=== PATIENT | female | born 1990 | race Two or more races ===

== ENCOUNTER 2021-08-01 04:45 | Emergency (ER) | payer OTHER ==
[~2021-08-01] VITALS: Ht 162.6 cm; Wt 52.2 kg
== END 2021-08-01 10:50 | disposition home or self-care (01) ==
LOC: ER 04:45
DX: K29.70 Gastritis, unspecified, without bleeding (principal)

== ENCOUNTER 2021-10-26 09:32 | Emergency (ER) | payer OTHER ==
[~2021-10-26] VITALS: Ht 132.1 cm; Wt 48.5 kg
== END 2021-10-26 18:37 | disposition home or self-care (01) ==
LOC: ER 09:32
DX: J06.9 Acute upper respiratory infection, unspecified (principal); Z20.828 Contact with and (suspected) exposure to other viral communicable diseases

== ENCOUNTER 2022-06-15 15:05 | Emergency (ER) | payer OTHER ==
[~2022-06-15] VITALS: Ht 154.9 cm; Wt 61.2 kg
== END 2022-06-15 18:25 | disposition home or self-care (01) ==
LOC: ER 15:05
DX: R53.81 Other malaise (principal); J06.9 Acute upper respiratory infection, unspecified

== ENCOUNTER 2022-06-21 21:28 | Emergency (ER) | payer OTHER ==
[~2022-06-21] VITALS: Ht 162.6 cm; Wt 54.4 kg
== END 2022-06-21 22:34 | disposition home or self-care (01) ==
LOC: ER 21:28
DX: R05.9 Cough, unspecified (principal)

== ENCOUNTER 2022-09-07 06:58 | Emergency (ER) | payer OTHER ==
[~2022-09-07] VITALS: Ht 162.6 cm; Wt 53.5 kg
[2022-09-07] MEDS ORDERED: DICLOFENAC SODI75 MG PO (09:48)
== END 2022-09-07 09:52 | disposition home or self-care (01) ==
LOC: ER 06:58
DX: R07.9 Chest pain, unspecified (principal)

== ENCOUNTER 2022-10-28 11:32 | Emergency (ER) | payer OTHER ==
[~2022-10-28] VITALS: Ht 162.6 cm; Wt 52.2 kg
[~2022-10-28 11:32] MED LIST: DICLOFENAC SODI75 MG PO
== END 2022-10-28 18:11 | disposition home or self-care (01) ==
LOC: ER 11:32
DX: M54.59 Other low back pain (principal)

== ENCOUNTER 2023-04-12 15:33 | Emergency (ER) | payer OTHER ==
[~2023-04-12] VITALS: Ht 162.6 cm; Wt 51.3 kg
== END 2023-04-12 17:40 | disposition home or self-care (01) ==
LOC: ER 15:34
DX: J30.89 Other allergic rhinitis (principal)

== ENCOUNTER 2023-05-31 18:51 | Emergency (ER) | payer OTHER ==
[~2023-05-31] VITALS: Ht 162.6 cm; Wt 49.9 kg
[2023-05-31 21:23] LABS: HEMATOCRIT 36.9 % (36.0-45.00); HEMOGLOBIN 12.7 g/dL (12.0-15.00); MEAN CELL VOLUME 88.1 fL (80.00-100.00); MEAN CORPUSCULAR HEMOGLOBIN 30.3 pg (27.00-32.0); MEAN CORPUSCULAR HGB CONC 34.4 g/dl (32.0-36.0); PLATELET COUNT 299 K/uL (150-450); RED BLOOD COUNT 4.19 M/uL (4.00-6.00); RED CELL DISTRIBUTION WIDTH 12.2 % (11.5-14.5)
== END 2023-05-31 22:00 | disposition home or self-care (01) ==
LOC: ER 18:52
DX: J06.9 Acute upper respiratory infection, unspecified (principal); Z20.822 Contact with and (suspected) exposure to COVID-19

== ENCOUNTER 2024-03-14 12:16 | Emergency (ER) | payer OTHER ==
[~2024-03-14] VITALS: Ht 152.4 cm; Wt 52.6 kg
[2024-03-14] MEDS ORDERED: ACETAMINOPHEN 500 MG GEL..CAP PO ONE (14:05)
[2024-03-14] MEDS ORDERED: BENTYL10 MG/1 ML IM (14:09)
[2024-03-14] MEDS ORDERED: PEPCID AC20 MG PO (14:09)
[2024-03-14] MEDS ORDERED: PROTONIX40 MG PO (14:10)
[2024-03-14] MEDS ORDERED: FAMOtidine 10 MG/ML (4ML VIAL) IV PUSH ONE (14:30)
[2024-03-14] MEDS ORDERED: ONDANSETRON HCL 2 MG/ML VIAL IM ONE (14:30)
[2024-03-14] MEDS ORDERED: BUTALB/ACETAMINOPHEN/CAFFEINE 1 TAB TABLET PO ONE ×2 (14:30→15:00)
[2024-03-14] MEDS ORDERED: ONDANSETRON HCL 2 MG/ML VIAL ONE (15:00)
[2024-03-14] MEDS ORDERED: FAMOTIDINE/PF 20 MG/2 ML VIAL ONE (15:00)
[2024-03-14 16:39] LABS: HEMATOCRIT 39.9 % (36.0-45.00); HEMOGLOBIN 13.4 g/dL (12.0-15.00); MEAN CELL VOLUME 88.6 fL (80.00-100.00); MEAN CORPUSCULAR HEMOGLOBIN 29.7 pg (27.00-32.0); MEAN CORPUSCULAR HGB CONC 33.6 g/dl (32.0-36.0); PLATELET COUNT 227 K/uL (150-450); RED CELL DISTRIBUTION WIDTH 12.3 % (11.5-14.5)
[2024-03-14 16:59] LABS: ALBUMIN 4.3 gm/dL (3.4-5.0); BILIRUBIN TOTAL 0.97 mg/dL (0.3-1.2); CALCIUM 9.2 mg/dL (8.5-10.1); CREATININE SERUM 0.83 mg/dL (0.55-1.02); GFR 79.17; POTASSIUM 3.96 mEq/L (3.5-5.1); TOTAL PROTEIN 8.3 gm/dL (6.4-8.2)
[2024-03-14] MEDS ORDERED: IPRATROPIUM/ALBUTEROL SULFATE 3 ML AMPUL.NEB IH SCH (17:45)
[2024-03-14] MEDS ORDERED: OSEL75CA PO (17:55)
[2024-03-14] MEDS ORDERED: ACETAMINOPHEN500 M1 PO (17:55)
[2024-03-14] MEDS ORDERED: GILTUSS COUGH-118 M1 PO (17:55)
[2024-03-14] MEDS ORDERED: BENZONATATE 200 MG CAPSULE PO ONE (18:00)
[2024-03-14] MEDS ORDERED: IPRATROPIUM/ALBUTEROL SULFATE 3 ML AMPUL.NEB IH ONE (18:00)
== END 2024-03-14 18:58 | disposition home or self-care (01) ==
LOC: ER 12:18
PROVIDERS: General Practice
DX: J10.1 Influenza due to other identified influenza virus with other respiratory manifestations (principal); Z20.822 Contact with and (suspected) exposure to COVID-19; Z88.0 Allergy status to penicillin; Z87.09 Personal history of other diseases of the respiratory system

== ENCOUNTER 2024-06-25 14:39 | Emergency (ER) | payer OTHER ==
[~2024-06-25] VITALS: Ht 162.6 cm; Wt 49.9 kg
[~2024-06-25 14:39] MED LIST changes: +ACETAMINOPHEN500 M1 PO; +BENTYL10 MG/1 ML IM; +GILTUSS COUGH-118 M1 PO; +OSEL75CA PO; +PEPCID AC20 MG PO; +PROTONIX40 MG PO
[2024-06-25] MEDS ORDERED: DEXAMETHASONE SODIUM PHOSPHATE 4 MG/ML VIAL IM ONE (16:45)
[2024-06-25] MEDS ORDERED: KETOROLAC TROMETHAMINE 30 MG VIAL IM ONE (16:45)
[2024-06-25] MEDS ORDERED: DEXAMETHASONE SODIUM PHOSPHATE 4 MG/ML VIAL ONE (16:51)
[2024-06-25] MEDS ORDERED: KETOROLAC TROMETHAMINE 30 MG VIAL ONE (16:51)
== END 2024-06-25 17:47 | disposition home or self-care (01) ==
LOC: ER 14:39
DX: M94.0 Chondrocostal junction syndrome [Tietze] (principal); S23.41XA Sprain of ribs, initial encounter; Z88.0 Allergy status to penicillin

== ENCOUNTER 2025-01-02 17:36 | Emergency (ER) | payer OTHER ==
[~2025-01-02] VITALS: Ht 162.6 cm; Wt 54.4 kg
[2025-01-02] MEDS ORDERED: NORFLEX100MG PO (18:15)
[2025-01-02] MEDS ORDERED: KETOROLAC TROMETHAMINE 60 MG VIAL IM ONE ×2 (18:15→18:20)
[2025-01-02] MEDS ORDERED: ORPHENADRINE CITRATE 30 MG/ML AMPUL IM ONE (18:15)
[2025-01-02] MEDS ORDERED: ORPHENADRINE CITRATE 30 MG/ML AMPUL ONE (18:20)
== END 2025-01-02 21:37 | disposition home or self-care (01) ==
LOC: ER 17:37
DX: M54.59 Other low back pain (principal)

== ENCOUNTER 2025-02-07 16:18 | Emergency (ER) | payer OTHER ==
[~2025-02-07] VITALS: Ht 162.6 cm; Wt 55.3 kg
[~2025-02-07 16:18] MED LIST changes: +NORFLEX100MG PO
[2025-02-07] MEDS ORDERED: KETOROLAC TROMETHAMINE 30 MG VIAL IU ONE (17:15)
[2025-02-07] MEDS ORDERED: 0.9 % SODIUM CHLORIDE 1,000 ML IV ONE (17:15)
[2025-02-07] MEDS ORDERED: FAMOTIDINE/PF 20 MG in 0.9 % SODIUM CHLORIDE 8 ML IV PUSH ONE (17:15)
[2025-02-07] MEDS ORDERED: ACETAMINOPHEN 500 MG GEL..CAP PO ONE ×2 (17:15→17:19)
[2025-02-07] MEDS ORDERED: ONDANSETRON HCL 4 MG in 0.9 % SODIUM CHLORIDE 50 ML IV ONE (17:15)
[2025-02-07] MEDS ORDERED: ONDANSETRON HCL 2 MG/ML VIAL ONE (17:19)
[2025-02-07] MEDS ORDERED: KETOROLAC TROMETHAMINE 30 MG VIAL ONE (17:19)
[2025-02-07] MEDS ORDERED: FAMOTIDINE/PF 20 MG/2 ML VIAL ONE (17:20)
[2025-02-07 17:58] LABS: BASO % 1.0 % (0.1-1.2); EOS # 0.40 (0.04-0.54); EOS % 4.4 % (0.7-7.0); LYMPH # 1.98 (1.18-3.74); LYMPH % 21.8 % (19.3-53.1); MEAN PLATELET VOLUME 11.20 fl (9.4-12.4); MONO # 0.48 (0.24-0.82); MONO % 5.3 % (4.7-12.5); NEUT # 6.10 (1.56-6.13); NEUT % 67.3 % (34.0-71.1); RED CELL DISTRIBUTION WIDTH 11.4 % (11.6-14.4)
[2025-02-07 18:22] LABS: INR 1.01
[2025-02-07 18:37] LABS: ALT/SGPT 18 U/L (12-78); AST/SGOT 11 U/L (15-37); BILIRUBIN TOTAL 1.70 mg/dL (0.3-1.2); BUN CREA RATIO 24 (7.0-25.0); CREATININE SERUM 0.62 mg/dL (0.55-1.02); GFR 110.19; GLOBULINA 3.8 G/DL (2.4-3.5); GLUCOSE FASTING 107 mg/dL (65-100); OSMOLALITY SERUM 279 MOSM/KG (275-295)
[2025-02-07 18:39] LABS: HCG QUANTITATIVE < 1 mUI/mL (1-3)
[2025-02-07 22:02] LABS: URINE APPEARANCE Clear; URINE BILIRRUBIN Negative (NEGATIVE); URINE BLOOD Negative; URINE COLOR Yellow; URINE GLUCOSE Negative (NEGATIVE); URINE KETONE Negative (NEGATIVE); URINE LEUKOCYTE Moderate; URINE NITRATE Negative; URINE PROTEIN Negative (NEGATIVE); URINE UROBILINOGEN 1.0 E.U./dl
[2025-02-07 22:07] LABS: URINE EPITHELIAL CELLS 14.5 uL (0.0-38.8); URINE WBC 153.7 uL (0.0-23.2)
[2025-02-07 22:15] LABS: URINE CAST 0.00 uL (0.0-1.40); URINE RBC 1.4 uL (0.0-20.8)
[2025-02-07] MEDS ORDERED: MIRALAX17 GM PO (23:26)
[2025-02-07] MEDS ORDERED: PEPCID AC20 MG PO (23:26)
[2025-02-07] MEDS ORDERED: MACROBID 100 M100 MG PO (23:26)
[2025-02-07] MEDS ORDERED: IBU600 MG PO (23:26)
[2025-02-07] MEDS ORDERED: PYRIDIUM DS200 MG PO (23:26)
== END 2025-02-08 00:37 | disposition home or self-care (01) ==
LOC: ER 16:19
PROVIDERS: General Practice
DX: R10.31 Right lower quadrant pain (principal); K59.00 Constipation, unspecified; J45.909 Unspecified asthma, uncomplicated; R10.9 Unspecified abdominal pain